=== PATIENT | female | born 1970 | race Caucasian/White ===

== ENCOUNTER 2019-04-04 12:03 | Emergency (ER) | payer OTHER ==
[~2019-04-04] VITALS: Ht 167.6 cm; Wt 81.2 kg
[~2019-04-04 12:03] MED LIST: AMOXICILLIN 50500 MG PO; AUGMENTIN 875875 MG PO; COREG PO; FUROSEMIDE 20 M20 MG PO; IBUPROFEN; K-DUR10 ME1 PO; LISINOPRIL5 MG PO; SLOW FE 160MG160 MG; TRAMADOL 50 MG50 MG PO; VICODIN 5-5001 EACH
[2019-04-04] MEDS ORDERED: ADVIL200 M3 PO (12:30)
[2019-04-04] MEDS ORDERED: BUTALB-APAP-CA1 EACH PO (13:34)
[2019-04-04] MEDS ORDERED: MECLIZINE HCL25 M1 PO (13:34)
[2019-04-04] MEDS ORDERED: AUGMENTIN 875-1 EACH PO (13:56)
[2019-04-04 14:03] VITALS: BP 138/72
== END 2019-04-04 14:04 | disposition home or self-care (01) ==
LOC: M.ERS 12:03
DX: J32.9 Chronic sinusitis, unspecified (principal); R51 Headache; Z98.890 Other specified postprocedural states; Z91.041 Radiographic dye allergy status; Z88.8 Allergy status to other drugs, medicaments and biological substances

== ENCOUNTER 2020-10-09 09:23 | Emergency (ER) | payer BC ==
[~2020-10-09] VITALS: Ht 167.6 cm; Wt 81.7 kg
[~2020-10-09 09:23] MED LIST changes: +ADVIL200 M3 PO; +AUGMENTIN 875-1 EACH PO; +BUTALB-APAP-CA1 EACH PO; +MECLIZINE HCL25 M1 PO
[2020-10-09] MEDS ORDERED: MECLIZINE HCL25 M1 PO (12:44)
[2020-10-09 12:49] VITALS: BP 110/65
== END 2020-10-09 12:50 | disposition home or self-care (01) ==
LOC: M.ERS 09:23
DX: R42 Dizziness and giddiness (principal); Z91.041 Radiographic dye allergy status; Z98.890 Other specified postprocedural states